=== PATIENT | female | born 1980 | race Caucasian/White ===

== ENCOUNTER 2019-07-06 10:39 | Emergency (ER) | payer OTHER ==
[~2019-07-06] VITALS: Ht 165.1 cm; Wt 72.6 kg
[2019-07-06] MEDS ORDERED: SEROQUEL200 MG PO (10:53)
[2019-07-06] MEDS ORDERED: NORCO 5-325 TA1 EAC1 PO (11:11)
[2019-07-06] MEDS ORDERED: CENTANY30 GM TOP (11:11)
[2019-07-06] MEDS ORDERED: CLEOCIN HCL300 MG PO (11:11)
[2019-07-06 11:15] VITALS: BP 148/79
== END 2019-07-06 11:15 | disposition home or self-care (01) ==
LOC: M.ERS 10:39
DX: S61.303A Unspecified open wound of left middle finger with damage to nail, initial encounter (principal); S61.305A Unspecified open wound of left ring finger with damage to nail, initial encounter; S61.301A Unspecified open wound of left index finger with damage to nail, initial encounter; L03.012 Cellulitis of left finger; Z88.6 Allergy status to analgesic agent; X58.XXXA Exposure to other specified factors, initial encounter; Y92.89 Other specified places as the place of occurrence of the external cause; Y93.89 Activity, other specified; Y99.8 Other external cause status

== ENCOUNTER 2019-07-14 11:46 | Emergency (ER) | payer OTHER ==
[~2019-07-14] VITALS: Ht 165.1 cm; Wt 77.1 kg
[~2019-07-14 11:46] MED LIST: CENTANY30 GM TOP; CLEOCIN HCL300 MG PO; NORCO 5-325 TA1 EAC1 PO; SEROQUEL200 MG PO
[2019-07-14 12:00] VITALS: BP 133/69
[2019-07-14] MEDS ORDERED: NORCO 5-325 TA1 EAC1 PO (13:00)
== END 2019-07-14 13:12 | disposition home or self-care (01) ==
LOC: M.ERS 11:46
DX: M79.645 Pain in left finger(s) (principal); Z76.0 Encounter for issue of repeat prescription; Z88.6 Allergy status to analgesic agent